=== PATIENT | female | born 1960 | race Asian ===

== ENCOUNTER 2023-03-10 12:02 | Emergency (ER) | payer OTHER ==
[~2023-03-10] VITALS: Ht 165.1 cm; Wt 63.2 kg
[2023-03-10] MEDS ORDERED: LOSA-382 PO (12:16)
[2023-03-10] MEDS ORDERED: GLIP5TAB12 PO (12:16)
[2023-03-10] MEDS ORDERED: EMPA25TA3 PO (12:16)
[2023-03-10] MEDS ORDERED: ASPI-1444 PO (12:19)
[2023-03-10] MEDS ORDERED: OMEG-189 PO (12:19)
[2023-03-10] MEDS ORDERED: EZET10TA57 PO (12:19)
[2023-03-10] MEDS ORDERED: CALC-898 PO (12:19)
[2023-03-10] MEDS ORDERED: LETR2.5 PO (12:19)
[2023-03-10] MEDS ORDERED: KETOROLAC TROMETHAMINE 60 MG/2 ML VIAL IM ONE (14:15)
[2023-03-10] MEDS ORDERED: BACLOFEN 10 MG TABLET PO ONE (14:15)
[2023-03-10] MEDS ORDERED: ACETAMINOPHEN/CODEINE 300-30 MG TABLET PO ONE (14:15)
[2023-03-10] MEDS ORDERED: IBUP-1554 PO (15:20)
[2023-03-10] MEDS ORDERED: ACET-2080 PO (15:20)
[2023-03-10] MEDS ORDERED: BACL10TA PO (15:20)
[2023-03-10 16:28] VITALS: BP 138/59
[2023-03-12] MEDS ORDERED: ACET-2080 PO (10:18)
[2023-03-12] MEDS ORDERED: BACL10TA PO (10:18)
[2023-03-12] MEDS ORDERED: IBUP-1554 PO (10:18)
== END 2023-03-10 16:30 | disposition home or self-care (01) ==
LOC: EMS 12:02
DX: S39.012A Strain of muscle, fascia and tendon of lower back, initial encounter (principal); E11.9 Type 2 diabetes mellitus without complications; E78.00 Pure hypercholesterolemia, unspecified; I10 Essential (primary) hypertension; Z98.890 Other specified postprocedural states; X50.9XXA Other and unspecified overexertion or strenuous movements or postures, initial encounter; Y93.89 Activity, other specified; Y92.89 Other specified places as the place of occurrence of the external cause; Y99.8 Other external cause status
CPT/HCPCS: 99283; 72100; 96372; J1885